=== PATIENT | female | born 1930 | race Caucasian/White ===

== ENCOUNTER 2018-11-02 15:58 | Inpatient (IN) | payer MEDICAID, MEDICARE ==
[2018-11-02] MEDS ORDERED: Metolazone 5 MG Tab PO ONE (17:30)
[2018-11-02] MEDS ORDERED: Furosemide 40 MG/4 ML VIAL IVPUSH ONE (18:00)
--- NOTE | 2018-11-02 18:00 | PCM.HP ---
H&P History of Present Illness - General Date of Service: 11/02/18 Admit Problem/Dx: Admission Diagnosis/Problem Admission Diagnosis/Problem CHF, Congestive heart failure Source of Information: Family History Limitations: Reports: Other (Doesn't speak [place]) - History of Present Illness Initial Comments - Free Text/Narative: This is a 87-year-old female patient of Dr. Azul has a history of right-sided heart failure. Set about 1-2 weeks history of increasing leg swelling. He called over felt she should be admitted for right-sided failure. She's also amlodipine currently for hypertension. She has history of atrial fib. History is limited because Mr. who speaks some [place]. She does not speak any. According to him she has no fevers, chills or shortness of breath. It appears that she was seen by one of the PAs with increase her Lasix for a while and then decrease it. I'm not able to get any more history that's relevant be due to light image barrier. lower legs Pain Score (Numeric/FACES): 5 - Related Data Allergies/Adverse Reactions: Allergies Allergy/AdvReac Type Severity Reaction Status Date / Time No Known Allergies Allergy Verified 10/03/13 23:46 Home Medications: Home Meds Cholecalciferol (Vitamin D3) [Vitamin D3] 2,000 unit PO DAILY 11/02/18 [History] Furosemide 80 mg PO BID 11/02/18 [History] Levothyroxine [Sythroid] 100 mcg PO SUTUWETHSA 11/02/18 [History] Levothyroxine [Sythroid] 150 mcg PO MOFR 11/02/18 [History] Metoprolol Succinate [Toprol XL] 25 mg PO BEDTIME 11/02/18 [History] Warfarin [Coumadin] 10 mg PO SUTUTHSA 11/02/18 [History] Warfarin [Coumadin] 12.5 mg PO MOWEFR 11/02/18 [History] amLODIPine Besylate [Amlodipine Besylate] 5 mg PO DAILY 11/02/18 [History] Past Medical History - Past Health History Medical/Surgical History: Denies Medical/Surgical History HEENT History: Reports: Hard of Hearing, Other (See Below) Other HEENT History: hearing loss Cardiovascular History: Reports: Afib, Heart Failure, Hypertension, GA Respiratory History: Reports: Other (See Below) (Common her hypertension) Musculoskeletal History: Reports: Gout Endocrine/Metabolic History: Reports: Hypothyroidism Dermatologic History: Reports: Venous Stasis Dermatitis Social & Family History - Family History Family Medical History: Noncontributory - Tobacco Use Smoking Status *Q: Never Smoker - Caffeine Use Caffeine Use: Reports: Tea - Recreational Drug Use Recreational Drug Use: No H&P Review of Systems - Review of Systems: Review Of Systems: Unable To Obtain Exam - Exam Exam: See Below - Vital Signs Weight: 171 lb 4 oz - Exam General: Alert, Cooperative HEENT: Hearing Intact, Posterior Pharynx Clear, TMs Clear Neck: Supple, Trachea Midline, JVD. No: Carotid Bruit Lungs: Clear to Auscultation, Normal Respiratory Effort. No: Crackles, Rales, Rhonchi Cardiovascular: Regular Rate, Irregular Rhythm, Systolic Murmur GI/Abdominal Exam: Normal Bowel Sounds, Soft, Non-Tender, No Organomegaly, No Distention Extremities: Pedal Edema Skin: Warm, Rash (Legs bilateral) Neuro Extensive - Mental Status: Alert Psychiatric: Alert, Anxious - Patient Data Lab Results Last 24 hrs: Laboratory Results - last 24 hr 11/02/18 11/02/18 11/02/18 Range/Units 17:00 17:00 17:00 WBC 5.6 (4.5-12.0) X10-3/uL RBC 3.29 (3.23-5.20) x10(6)uL Hgb 9.6 L (11.5-15.5) g/dL Hct 29.1 L (30.0-51.3) % MCV 88.2 (80-96) fL MCH 29.0 (27.7-33.6) pg MCHC 32.9 (32.2-35.4) g/dL RDW 15.1 (11.5-15.5) % Plt Count 204 (125-369) X10(3)uL MPV 8.1 (7.4-10.4) fL Neut % (Auto) 71.0 (46-82) % Lymph % (Auto) 9.8 L (13-37) % Crowley % (Auto) 14.4 H (4-12) % Eos % (Auto) 4 (1.0-5.0) % Baso % (Auto) 1 (0-2) % Neut # (Auto) 4.1 (1.6-8.3) # Lymph # (Auto) 0.5 L (0.6-5.0) # Crowley # (Auto) 0.8 (0.0-1.3) # Eos # (Auto) 0.2 (0.0-0.8) # Baso # (Auto) 0.0 (0.0-0.2) # PT 66.9 H* (8.7-11.1) INR 7.03 H* (0.89-1.13) Sodium 139 (135-145) mmol/L Potassium 3.4 L (3.5-5.3) mmol/L Chloride 104 (100-110) mmol/L Carbon Dioxide 24 (21-32) mmol/L BUN 40 H (7-18) mg/dL Creatinine 1.5 H (0.55-1.02) mg/dL Est Cr Clr Drug Dosing 19.56 mL/min Estimated GFR (MDRD) 33 L (>60) BUN/Creatinine Ratio 26.7 H (9-20) Glucose 109 (80-116) mg/dL Calcium 8.6 (8.6-10.2) mg/dL Total Bilirubin 0.6 (0.1-1.3) mg/dL AST 39 H (5-25) IU/L ALT 36 (12-36) U/L Alkaline Phosphatase 257 H (56-112) IU/L Total Protein 7.7 (6.0-8.0) g/dL Albumin 2.9 L (3.2-4.6) g/dL Globulin 4.8 g/dL Albumin/Globulin Ratio 0.6 Result Diagrams: 11/02/18 17:00 11/02/18 17:00 - Problem List (1) CHF exacerbation SNOMED Code(s): 84355426 ICD Code: I50.9 - HEART FAILURE, UNSPECIFIED Status: Acute Current Visit : Yes (2) Atrial fibrillation SNOMED Code(s): 25400595 ICD Code: I48.91 - UNSPECIFIED ATRIAL FIBRILLATION Status: Acute Current Visit: Yes (3) Hypertension SNOMED Code(s): 78330236 ICD Code: I10 - ESSENTIAL (PRIMARY) HYPERTENSION Status: Acute Current Visit: Yes (4) Hypothyroidism SNOMED Code(s): 15704147 ICD Code: E03.9 - HYPOTHYROIDISM, UNSPECIFIED Status: Acute Current Visit : Yes (5) Pulmonary hypertension SNOMED Code(s): 20006365 ICD Code: I27.20 - PULMONARY HYPERTENSION, UNSPECIFIED Status: Acute Current Visit: Yes (6) Chronic acquired lymphedema SNOMED Code(s): 40017664 ICD Code: I89.0 - LYMPHEDEMA, NOT ELSEWHERE CLASSIFIED Status: Acute Current Visit: Yes (7) Palliative care status SNOMED Code(s): 969196032 ICD Code: Z51.5 - ENCOUNTER FOR PALLIATIVE CARE Status: Acute Current Visit: Yes (8) Chronic anticoagulation SNOMED Code(s): 980546480 ICD Code: Z79.01 - BASE FILLER (CURRENT) USE OF ANTICOAGULANTS Status: Acute Current Visit: Yes Problem List Initiated/Reviewed/Updated: Yes Orders Last 24hrs: Active Orders 24 hr Category Date Time Status Patient Status [ADT] Routine ADT 11/02/18 16:41 Active Cardiac Monitoring [RC] CONTINUOUS Care 11/02/18 16:42 Active Height and Weight [RC] DAILY Care 11/02/18 16:41 Active Insert Urinary Catheter [OM.PC] Q24H Care 11/02/18 16:45 Ordered Intake and Output [RC] QSHIFT Care 11/02/18 16:42 Active Oxygen Therapy [RC] PRN Care 11/02/18 16:41 Active Up With Assistance [RC] ASDIRECTED Care 11/02/18 16:41 Active Urinary Catheter Assessment [RC] QSHIFT Care 11/02/18 16:45 Active VTE/DVT Education [RC] Per Unit Routine Care 11/02/18 16:41 Active Vital Signs [RC] Q4H Care 11/02/18 16:41 Active OT Evaluation and Treatment [CONS] Routine Cons 11/02/18 16:41 Active PT Evaluation and Treatment [CONS] Routine Cons 11/02/18 16:41 Active 2 Gram Sodium Diet [DIET] Diet 11/02/18 Dinner Active INR,PT,PROTHROMBIN TIME [COAG] DAILY Lab 11/03/18 06:00 Ordered INR,PT,PROTHROMBIN TIME [COAG] DAILY Lab 11/04/18 06:00 Ordered INR,PT,PROTHROMBIN TIME [COAG] DAILY Lab 11/05/18 06:00 Ordered INR,PT,PROTHROMBIN TIME [COAG] DAILY Lab 11/06/18 06:00 Ordered UA W/O MICROSCOPIC [URIN] Routine Lab 11/02/18 16:41 Ordered Cholecalciferol (Vitamin D3) [Vitamin D3] Med 11/03/18 09:00 Active 2,000 units PO DAILY Furosemide [Lasix] Med 11/02/18 18:00 Once 80 mg IVPUSH NOW ONE Levothyroxine [Synthroid] Med 11/03/18 07:30 Active 100 mcg PO SuTuWeThSa@0730 Levothyroxine [Synthroid] Med 11/05/18 07:30 Active 150 mcg PO MoFr@0730 Metoprolol Succinate [Toprol XL] Med 11/02/18 21:00 Active 25 mg PO BEDTIME Sodium Chloride 0.9% [Saline Flush] Med 11/02/18 16:41 Active 10 ml FLUSH ASDIRECTED PRN Saline Lock Insert [OM.PC] Routine Oth 11/02/18 16:41 Ordered Sequential Compression Device [OM.PC] Per Unit Routine Oth 11/02/18 16:42 Ordered Resuscitation Status Routine Resus Stat 11/02/18 16:41 Ordered Medication Orders Cholecalciferol (Vitamin D3) 2,000 units PO DAILY [facility] Furosemide (Lasix) 80 mg IVPUSH NOW ONE Stop: 11/02/18 18:01 Levothyroxine Sodium (Synthroid) 100 mcg PO SuTuWeThSa@0730 [facility] Levothyroxine Sodium (Synthroid) 150 mcg PO MoFr@0730 [facility] Metoprolol Succinate (Toprol Xl) 25 mg PO BEDTIME [facility] Sodium Chloride (Saline Flush) 10 ml FLUSH ASDIRECTED PRN PRN Reason: Keep Vein Open Assessment/Plan Comment:: 1. Admit to inpatient. 2. Kee catheter because she's given Lasix in the evening. 3. Hold her by mouth Lasix. Start IV Lasix of 80 mg after 5 mg of metolazone. Time between 30 minutes. 4. Low sodium diet 5. Up with assist 6. For VTE prophylaxis-STD. Patient's on Coumadin. 7. Hold Coumadin because INR is over 7 and recheck INR in the a.m. 8. Pharmacy to manage INR. 9. Hold amlodipine. 10. Start an temitope inhibitor. 11. Patient had echo 1 year ago that showed right-sided heart failure with mitral regurg.
[2018-11-02] MEDS: Metoprolol Succinate 25 MG Tab.ER PO SCH (20:55)
[2018-11-03] MEDS: Levothyroxine 100 MCG Tab PO SCH ×2 (06:01→07:33)
[2018-11-03] MEDS ORDERED: Lisinopril 5 MG Tab PO SCH (09:00)
[2018-11-03] MEDS ORDERED: ceFAZolin 1 GM in Sodium Chloride 0.9% 50 ML IV SCH (09:00)
--- NOTE | 2018-11-03 09:02 | PCM.PN ---
- General Info Date of Service: 11/03/18 Admission Dx/Problem (Free Text): Have to communicate with this patient through her who speaks adequate [place]. Can get do detailed. No yarn sizer available including with technology. Denies fevers, chills, chest pain, shortness of breath. Legs may be better still painful. - Patient Data Vitals - Most Recent: Last Vital Signs Temp 97.6 F 11/03/18 04:00 Pulse 62 11/03/18 04:00 Resp 17 11/03/18 04:00 BP 137/61 11/03/18 04:00 Pulse Ox 92 L 11/03/18 04:00 Weight - Most Recent: 165 lb 8 oz I&O - Last 24 Hours: Intake & Output 11/02/18 11/03/18 11/03/18 22:59 06:59 14:59 Intake Total 100 Output Total 1120 2250 Balance -1120 -2150 Lab Results Last 24 Hours: Laboratory Results - last 24 hr 11/02/18 11/02/18 11/02/18 Range/Units 17:00 17:00 17:00 WBC 5.6 (4.5-12.0) X10-3/uL RBC 3.29 (3.23-5.20) x10(6)uL Hgb 9.6 L (11.5-15.5) g/dL Hct 29.1 L (30.0-51.3) % MCV 88.2 (80-96) fL MCH 29.0 (27.7-33.6) pg MCHC 32.9 (32.2-35.4) g/dL RDW 15.1 (11.5-15.5) % Plt Count 204 (125-369) X10(3)uL MPV 8.1 (7.4-10.4) fL Neut % (Auto) 71.0 (46-82) % Lymph % (Auto) 9.8 L (13-37) % Brewster % (Auto) 14.4 H (4-12) % Eos % (Auto) 4 (1.0-5.0) % Baso % (Auto) 1 (0-2) % Neut # (Auto) 4.1 (1.6-8.3) # Lymph # (Auto) 0.5 L (0.6-5.0) # Brewster # (Auto) 0.8 (0.0-1.3) # Eos # (Auto) 0.2 (0.0-0.8) # Baso # (Auto) 0.0 (0.0-0.2) # PT 66.9 H* (8.7-11.1) INR 7.03 H* (0.89-1.13) Sodium 139 (135-145) mmol/L Potassium 3.4 L (3.5-5.3) mmol/L Chloride 104 (100-110) mmol/L Carbon Dioxide 24 (21-32) mmol/L BUN 40 H (7-18) mg/dL Creatinine 1.5 H (0.55-1.02) mg/dL Est Cr Clr Drug Dosing 19.56 mL/min Estimated GFR (MDRD) 33 L (>60) BUN/Creatinine Ratio 26.7 H (9-20) Glucose 109 (80-116) mg/dL Calcium 8.6 (8.6-10.2) mg/dL Total Bilirubin 0.6 (0.1-1.3) mg/dL AST 39 H (5-25) IU/L ALT 36 (12-36) U/L Alkaline Phosphatase 257 H (56-112) IU/L Troponin I (<0.017-0.056) ng/mL Total Protein 7.7 (6.0-8.0) g/dL Albumin 2.9 L (3.2-4.6) g/dL Globulin 4.8 g/dL Albumin/Globulin Ratio 0.6 Urine Color (YELLOW) Urine Appearance (CLEAR) Urine pH (5.0-6.5) Ur Specific Sherborn (1.010-1.025) Urine Protein (NEGATIVE) mg/dL Urine Glucose (UA) (NEGATIVE) mg/dL Urine Ketones (NEGATIVE) mg/dL Urine Occult Blood (NEGATIVE) Urine Nitrite (NEGATIVE) Urine Bilirubin (NEGATIVE) Urine Urobilinogen (NEGATIVE) mg/dL Ur Leukocyte Esterase (NEGATIVE) 11/02/18 11/03/18 11/03/18 Range/Units 18:00 06:05 06:05 WBC (4.5-12.0) X10-3/uL RBC (3.23-5.20) x10(6)uL Hgb (11.5-15.5) g/dL Hct (30.0-51.3) % MCV (80-96) fL MCH (27.7-33.6) pg MCHC (32.2-35.4) g/dL RDW (11.5-15.5) % Plt Count (125-369) X10(3)uL MPV (7.4-10.4) fL Neut % (Auto) (46-82) % Lymph % (Auto) (13-37) % Brewster % (Auto) (4-12) % Eos % (Auto) (1.0-5.0) % Baso % (Auto) (0-2) % Neut # (Auto) (1.6-8.3) # Lymph # (Auto) (0.6-5.0) # Brewster # (Auto) (0.0-1.3) # Eos # (Auto) (0.0-0.8) # Baso # (Auto) (0.0-0.2) # PT 84.7 H* (8.7-11.1) INR 7.81 H* (0.89-1.13) Sodium 139 (135-145) mmol/L Potassium 3.4 L (3.5-5.3) mmol/L Chloride 102 (100-110) mmol/L Carbon Dioxide 26 (21-32) mmol/L BUN 44 H (7-18) mg/dL Creatinine 1.5 H (0.55-1.02) mg/dL Est Cr Clr Drug Dosing 19.56 mL/min Estimated GFR (MDRD) 33 L (>60) BUN/Creatinine Ratio 29.3 H (9-20) Glucose 106 (80-116) mg/dL Calcium 8.8 (8.6-10.2) mg/dL Total Bilirubin 0.6 (0.1-1.3) mg/dL AST 38 H (5-25) IU/L ALT 34 (12-36) U/L Alkaline Phosphatase 242 H (56-112) IU/L Troponin I (<0.017-0.056) ng/mL Total Protein 7.6 (6.0-8.0) g/dL Albumin 2.9 L (3.2-4.6) g/dL Globulin 4.7 g/dL Albumin/Globulin Ratio 0.6 Urine Color Yellow (YELLOW) Urine Appearance Clear (CLEAR) Urine pH 5.0 (5.0-6.5) Ur Specific Sherborn 1.015 (1.010-1.025) Urine Protein Negative (NEGATIVE) mg/dL Urine Glucose (UA) Normal (NEGATIVE) mg/dL Urine Ketones Negative (NEGATIVE) mg/dL Urine Occult Blood Negative (NEGATIVE) Urine Nitrite Negative (NEGATIVE) Urine Bilirubin Negative (NEGATIVE) Urine Urobilinogen Normal (NEGATIVE) mg/dL Ur Leukocyte Esterase Negative (NEGATIVE) 11/03/18 11/03/18 Range/Units 06:05 07:20 WBC 5.0 (4.5-12.0) X10-3/uL RBC 3.33 (3.23-5.20) x10(6)uL Hgb 9.5 L (11.5-15.5) g/dL Hct 29.2 L (30.0-51.3) % MCV 87.6 (80-96) fL MCH 28.4 (27.7-33.6) pg MCHC 32.4 (32.2-35.4) g/dL RDW 14.4 (11.5-15.5) % Plt Count 217 (125-369) X10(3)uL MPV 8.5 (7.4-10.4) fL Neut % (Auto) 62.7 (46-82) % Lymph % (Auto) 14.8 (13-37) % Brewster % (Auto) 17.3 H (4-12) % Eos % (Auto) 4 (1.0-5.0) % Baso % (Auto) 1 (0-2) % Neut # (Auto) 3.2 (1.6-8.3) # Lymph # (Auto) 0.7 (0.6-5.0) # Brewster # (Auto) 0.9 (0.0-1.3) # Eos # (Auto) 0.2 (0.0-0.8) # Baso # (Auto) 0.0 (0.0-0.2) # PT (8.7-11.1) INR (0.89-1.13) Sodium (135-145) mmol/L Potassium (3.5-5.3) mmol/L Chloride (100-110) mmol/L Carbon Dioxide (21-32) mmol/L BUN (7-18) mg/dL Creatinine (0.55-1.02) mg/dL Est Cr Clr Drug Dosing mL/min Estimated GFR (MDRD) (>60) BUN/Creatinine Ratio (9-20) Glucose (80-116) mg/dL Calcium (8.6-10.2) mg/dL Total Bilirubin (0.1-1.3) mg/dL AST (5-25) IU/L ALT (12-36) U/L Alkaline Phosphatase (56-112) IU/L Troponin I < 0.017 L (<0.017-0.056) ng/mL Total Protein (6.0-8.0) g/dL Albumin (3.2-4.6) g/dL Globulin g/dL Albumin/Globulin Ratio Urine Color (YELLOW) Urine Appearance (CLEAR) Urine pH (5.0-6.5) Ur Specific Sherborn (1.010-1.025) Urine Protein (NEGATIVE) mg/dL Urine Glucose (UA) (NEGATIVE) mg/dL Urine Ketones (NEGATIVE) mg/dL Urine Occult Blood (NEGATIVE) Urine Nitrite (NEGATIVE) Urine Bilirubin (NEGATIVE) Urine Urobilinogen (NEGATIVE) mg/dL Ur Leukocyte Esterase (NEGATIVE) Med Orders - Current: Current Medications Cholecalciferol (Vitamin D3) 2,000 units PO DAILY [facility] Furosemide (Lasix) 60 mg IVPUSH BID [facility] Levothyroxine Sodium (Synthroid) 100 mcg PO SuTuWeThSa@0730 [facility] Last Admin: 11/03/18 07:33 Dose: Not Given Levothyroxine Sodium (Levothyroxine) 150 mcg PO MoFr@0730 [facility] Lisinopril (Prinivil) 10 mg PO DAILY [facility] Metoprolol Succinate (Toprol Xl) 25 mg PO BEDTIME [facility] Last Admin: 11/02/18 20:55 Dose: 25 mg Sodium Chloride (Saline Flush) 10 ml FLUSH ASDIRECTED PRN PRN Reason: Keep Vein Open Discontinued Medications Furosemide (Lasix) 80 mg IVPUSH NOW ONE Stop: 11/02/18 18:01 Last Admin: 11/02/18 19:00 Dose: 80 mg Lisinopril (Prinivil) 5 mg PO DAILY [facility] Metolazone (Zaroxolyn) 5 mg PO ONETIME ONE Stop: 11/02/18 17:31 Last Admin: 11/02/18 18:21 Dose: 5 mg - Exam General: Alert, Oriented, Cooperative Lungs: Clear to Auscultation, Normal Respiratory Effort. No: Crackles, Rales, Rhonchi Cardiovascular: Regular Rate, Regular Rhythm, Murmurs Extremities: Pedal Edema Skin: Other (Erythema bilateral lower legs.) Psy/Mental Status: Alert, Normal Affect, Normal Mood - Problem List & Annotations (1) CHF exacerbation SNOMED Code(s): 00768096 Code(s): I50.9 - HEART FAILURE, UNSPECIFIED Status: Acute Current Visit: Yes (2) Atrial fibrillation SNOMED Code(s): 19373788 Code(s): I48.91 - UNSPECIFIED ATRIAL FIBRILLATION Status: Acute Current Visit: Yes (3) Hypertension SNOMED Code(s): 71012920 Code(s): I10 - ESSENTIAL (PRIMARY) HYPERTENSION Status: Acute Current Visit: Yes (4) Hypothyroidism SNOMED Code(s): 96477097 Code(s): E03.9 - HYPOTHYROIDISM, UNSPECIFIED Status: Acute Current Visit : Yes (5) Pulmonary hypertension SNOMED Code(s): 07534100 Code(s): I27.20 - PULMONARY HYPERTENSION, UNSPECIFIED Status: Acute Current Visit: Yes (6) Chronic acquired lymphedema SNOMED Code(s): 45417633 Code(s): I89.0 - LYMPHEDEMA, NOT ELSEWHERE CLASSIFIED Status: Acute Current Visit: Yes (7) Palliative care status SNOMED Code(s): 688390995 Code(s): Z51.5 - ENCOUNTER FOR PALLIATIVE CARE Status: Acute Current Visit: Yes (8) Chronic anticoagulation SNOMED Code(s): 879915215 Code(s): Z79.01 - INSPECTOR TUBES (CURRENT) USE OF ANTICOAGULANTS Status: Acute Current Visit: Yes (9) Supratherapeutic INR SNOMED Code(s): 504739572 Code(s): R79.1 - ABNORMAL COAGULATION PROFILE Status: Acute Current Visit : Yes (10) Cellulitis, leg SNOMED Code(s): 632568429 Code(s): L03.119 - CELLULITIS OF UNSPECIFIED PART OF LIMB Status: Acute Current Visit: Yes - Problem List Review Problem List Initiated/Reviewed/Updated: Yes - My Orders Last 24 Hours: My Active Orders 11/02/18 16:41 Patient Status [ADT] Routine Height and Weight [RC] DAILY Oxygen Therapy [RC] PRN Up With Assistance [RC] ASDIRECTED VTE/DVT Education [RC] Per Unit Routine Vital Signs [RC] Q4H OT Evaluation and Treatment [CONS] Routine PT Evaluation and Treatment [CONS] Routine Sodium Chloride 0.9% [Saline Flush] 10 ml FLUSH ASDIRECTED PRN Saline Lock Insert [OM.PC] Routine Resuscitation Status Routine 11/02/18 16:42 Intake and Output [RC] QSHIFT Sequential Compression Device [OM.PC] Per Unit Routine 11/02/18 21:00 Metoprolol Succinate [Toprol XL] 25 mg PO BEDTIME 11/02/18 Dinner 2 Gram Sodium Diet [DIET] 11/03/18 07:01 EKG Documentation Completion [RC] ASDIRECTED CXR [Chest 2V] [CR] Routine EKG 12 Lead [EK] Routine 11/03/18 07:30 Levothyroxine [Synthroid] 100 mcg PO SuTuWeThSa@72911/03/18 08:58 DC Kee Catheter [Urinary Catheter Removal] [RC] Per Unit Routine 11/03/18 09:00 Cholecalciferol (Vitamin D3) [Vitamin D3] 2,000 units PO DAILY Furosemide [Lasix] 60 mg IVPUSH BID Lisinopril [Prinivil] 10 mg PO DAILY ceFAZolin [Ancef] 1 gm Sodium Chloride 0.9% [Normal Saline] 50 ml IV Q8H 11/04/18 06:00 INR,PT,PROTHROMBIN TIME [COAG] DAILY 11/05/18 06:00 INR,PT,PROTHROMBIN TIME [COAG] DAILY 11/05/18 07:30 Levothyroxine 150 mcg PO MoFr@0730 11/06/18 06:00 INR,PT,PROTHROMBIN TIME [COAG] DAILY - Plan Plan:: 1. Check BMP, EKG, chest x-ray, BMP and CBC today. 2. DC Kee and telemetry. 3. IV Lasix of 60 mg twice a day. 4. The legs are painful and erythematous. Heart didn't know if they're infected but unless her some Ancef. 5. PT/OT 6. Continue low-salt diet. 7. Continue daily weights and I's and O's. 8. We have stopped amlodipine. 9. Increase Lisinopril dose to 10 mg a day today.
[2018-11-03] MEDS: Sodium Chloride 0.9% 10 ML Syringe FLUSH PRN ×4 (09:35→20:34)
[2018-11-03] MEDS: ceFAZolin 1 GM Vial IVPUSH SCH ×2 (09:36→20:33)
[2018-11-03] MEDS: Cholecalciferol (Vitamin D3) 1,000 Unit Tab PO SCH (09:39)
[2018-11-03] MEDS: Furosemide 100 MG/10 ML SDV IVPUSH SCH ×2 (09:39→15:49)
[2018-11-03] MEDS: Lisinopril 10 MG Tab PO SCH (09:40)
--- NOTE | 2018-11-03 11:07 | CR ---
INDICATION: CHF. CHEST: PA and lateral views of the chest were obtained 11/03/18. Comparison studies could not be obtained in a timely fashion. Interpretation is made without comparison at this time. The heart is enlarged in general. The aorta is slightly tortuous with calcification in the arch. Evidence of previous median sternotomy is noted. Overlying EKG leads are noted. Pulmonary vasculature in the upper lung theodore is slightly prominent, compatible with a mild degree of CHF. Pleural parenchymal changes are noted at both lung bases, which may be on the basis of minimal pneumonia and pleuritis, more prominent on the left than right. Some of these changes could be on the basis of CHF, however. Bony structures appear to be somewhat diminished in density, raising question of osteoporosis. IMPRESSION: ASHD, cardiomegaly with mild CHF. Bibasilar pleural parenchymal changes may be on the basis of minimal pneumonia and pleuritis, left greater than right. MTDD
[2018-11-03] MEDS: Metoprolol Succinate 25 MG Tab.ER PO SCH (20:32)
[2018-11-04] MEDS: Lisinopril 10 MG Tab PO SCH (08:23)
[2018-11-04] MEDS: Levothyroxine 100 MCG Tab PO SCH (08:23)
[2018-11-04] MEDS: Furosemide 100 MG/10 ML SDV IVPUSH SCH ×2 (08:23→14:20)
[2018-11-04] MEDS: ceFAZolin 1 GM Vial IVPUSH SCH ×2 (08:24→21:19)
[2018-11-04] MEDS: Cholecalciferol (Vitamin D3) 1,000 Unit Tab PO SCH (08:24)
[2018-11-04] MEDS: Sodium Chloride 0.9% 10 ML Syringe FLUSH PRN ×3 (08:25→21:19)
--- NOTE | 2018-11-04 08:52 | PCM.PN ---
- General Info Date of Service: 11/04/18 Admission Dx/Problem (Free Text): Patient is speaking through her . asked the questions. Legs have less pain and they think there is swelling is decreased. She has no shortness breath, fevers, chills, chest pain. She still has a left hip and low back pain. X-rays were ordered have not been done yet. - Patient Data Vitals - Most Recent: Last Vital Signs Temp 98.3 F 11/04/18 03:43 Pulse 68 11/04/18 03:43 Resp 18 11/04/18 03:43 BP 116/54 L 11/04/18 08:23 Pulse Ox 96 11/04/18 03:43 Weight - Most Recent: 165 lb 6.4 oz I&O - Last 24 Hours: Intake & Output 11/03/18 11/04/18 11/04/18 22:59 06:59 14:59 Intake Total 900 200 Output Total 1950 350 Balance -1050 -150 Lab Results Last 24 Hours: Laboratory Results - last 24 hr 11/04/18 11/04/18 11/04/18 Range/Units 06:20 06:20 06:20 PT 82.9 H* (8.7-11.1) INR 7.65 H* (0.89-1.13) Sodium 136 (135-145) mmol/L Potassium 3.4 L (3.5-5.3) mmol/L Chloride 100 (100-110) mmol/L Carbon Dioxide 29 (21-32) mmol/L BUN 53 H (7-18) mg/dL Creatinine 1.8 H (0.55-1.02) mg/dL Est Cr Clr Drug Dosing 16.30 mL/min Estimated GFR (MDRD) 27 L (>60) BUN/Creatinine Ratio 29.4 H (9-20) Glucose 107 (80-116) mg/dL Calcium 8.6 (8.6-10.2) mg/dL NT-Pro-B Natriuret Pep 871 H (<=450) pg/mL Med Orders - Current: Current Medications Cefazolin Sodium (Ancef) 1 gm IVPUSH Q12H [facility] Last Admin: 11/04/18 08:24 Dose: 1 gm Cholecalciferol (Vitamin D3) 2,000 units PO DAILY [facility] Last Admin: 11/04/18 08:24 Dose: 2,000 units Furosemide (Lasix) 60 mg IVPUSH BIDDIURETIC [facility] Last Admin: 11/04/18 08:23 Dose: 60 mg Levothyroxine Sodium (Synthroid) 100 mcg PO SuTuWeThSa@0730 [facility] Last Admin: 11/04/18 08:23 Dose: 100 mcg Levothyroxine Sodium (Levothyroxine) 150 mcg PO MoFr@0730 [facility] Lisinopril (Prinivil) 10 mg PO DAILY [facility] Last Admin: 11/04/18 08:23 Dose: 10 mg Metoprolol Succinate (Toprol Xl) 25 mg PO BEDTIME [facility] Last Admin: 11/03/18 20:32 Dose: 25 mg Sodium Chloride (Saline Flush) 10 ml FLUSH ASDIRECTED PRN PRN Reason: Keep Vein Open Last Admin: 11/04/18 08:28 Dose: 10 ml Discontinued Medications Furosemide (Lasix) 80 mg IVPUSH NOW ONE Stop: 11/02/18 18:01 Last Admin: 11/02/18 19:00 Dose: 80 mg Lisinopril (Prinivil) 5 mg PO DAILY [facility] Metolazone (Zaroxolyn) 5 mg PO ONETIME ONE Stop: 11/02/18 17:31 Last Admin: 11/02/18 18:21 Dose: 5 mg - Exam General: Alert, Oriented Lungs: Clear to Auscultation, Normal Respiratory Effort Cardiovascular: Regular Rate, Regular Rhythm, Murmurs Extremities: Pedal Edema Wound/Incisions: Erythema Improving (Lower legs.) - Problem List & Annotations (1) CHF exacerbation SNOMED Code(s): 75221193 Code(s): I50.9 - HEART FAILURE, UNSPECIFIED Status: Acute Current Visit: Yes (2) Atrial fibrillation SNOMED Code(s): 88784613 Code(s): I48.91 - UNSPECIFIED ATRIAL FIBRILLATION Status: Acute Current Visit: Yes (3) Hypertension SNOMED Code(s): 64762536 Code(s): I10 - ESSENTIAL (PRIMARY) HYPERTENSION Status: Acute Current Visit: Yes (4) Hypothyroidism SNOMED Code(s): 20794213 Code(s): E03.9 - HYPOTHYROIDISM, UNSPECIFIED Status: Acute Current Visit : Yes (5) Pulmonary hypertension SNOMED Code(s): 89729334 Code(s): I27.20 - PULMONARY HYPERTENSION, UNSPECIFIED Status: Acute Current Visit: Yes (6) Chronic acquired lymphedema SNOMED Code(s): 28260249 Code(s): I89.0 - LYMPHEDEMA, NOT ELSEWHERE CLASSIFIED Status: Acute Current Visit: Yes (7) Palliative care status SNOMED Code(s): 377995665 Code(s): Z51.5 - ENCOUNTER FOR PALLIATIVE CARE Status: Acute Current Visit: Yes (8) Chronic anticoagulation SNOMED Code(s): 925610008 Code(s): Z79.01 - [facility] (CURRENT) USE OF ANTICOAGULANTS Status: Acute Current Visit: Yes (9) Supratherapeutic INR SNOMED Code(s): 683836964 Code(s): R79.1 - ABNORMAL COAGULATION PROFILE Status: Acute Current Visit : Yes (10) Cellulitis, leg SNOMED Code(s): 313238755 Code(s): L03.119 - CELLULITIS OF UNSPECIFIED PART OF LIMB Status: Acute Current Visit: Yes (11) Left hip pain SNOMED Code(s): 52881913 Code(s): M25.552 - PAIN IN LEFT HIP Status: Acute Current Visit: Yes (12) Low back pain SNOMED Code(s): 853628225 Code(s): M54.5 - LOW BACK PAIN Status: Acute Current Visit: Yes - Problem List Review Problem List Initiated/Reviewed/Updated: Yes - My Orders Last 24 Hours: My Active Orders 11/03/18 09:00 Cholecalciferol (Vitamin D3) [Vitamin D3] 2,000 units PO DAILY Lisinopril [Prinivil] 10 mg PO DAILY 11/03/18 09:15 Furosemide [Lasix] 60 mg IVPUSH BIDDIURETIC ceFAZolin [Ancef] 1 gm IVPUSH Q12H 11/04/18 06:00 Hip Min 2V or 3V Lt [CR] Routine Lumbar Spine 2 or 3V [CR] Routine 11/05/18 06:00 INR,PT,PROTHROMBIN TIME [COAG] DAILY 11/05/18 07:30 Levothyroxine 150 mcg PO MoFr@0730 11/06/18 06:00 INR,PT,PROTHROMBIN TIME [COAG] DAILY - Plan Plan:: 1. X-ray left hip and low back. 2. Gently wrap the lower legs with some compression 3. Continue the same IV Lasix dose today and consider change to by mouth tomorrow. 4. PT/OT for strengthening and ambulation.
[2018-11-04] MEDS ORDERED: Lisinopril 10 MG Tab PO ONE (09:15)
--- NOTE | 2018-11-04 10:13 | PCM.SN ---
- Free Text/Narrative Note: INR remains high in spite of no Coumadin. The he communicates awake about risks and benefits of blood product transfusion. He is okay with going ahead. Her going to give 2 units of FFP to try to bring the INR down.
[2018-11-04] MEDS ORDERED: Phytonadione ORAL 5mg/5ml Soln Simple Syrup U/D PO ONE ×2 (11:15→17:10)
--- NOTE | 2018-11-04 11:27 | CR ---
INDICATION: Left hip pain. PELVIS WITH LEFT HIP: Frontal view of the pelvis with frontal and lateral views of the left hip were obtained 11/04/18 - no comparisons. There is an appearance of demineralization, suggesting osteoporosis - correlate clinically. Mild degenerative changes are noted at the sacroiliac joints and the hip joints with the joint spaces appearing to be fairly well maintained. No acute bone or joint abnormality was identified. Dextroconcave rotoscoliosis of the lower lumbar spine is noted. IMPRESSION: Mild osteoarthritis, probable osteoporosis. MTDD
--- NOTE | 2018-11-04 11:33 | CR ---
INDICATION: Low back pain. LUMBOSACRAL SPINE: An AP view of the lumbosacral spine and three lateral views were obtained, revealing evidence of degenerative hypertrophic changes of mild degree in general and more prominently at L4-5. Vacuum disk phenomenon and decreased disk space at L4-5 is compatible with degenerative disk disease. There is also appearance of some narrowing of the L5-S1 disk space, suggesting disk disease at that level. Degenerative changes are noted at the apophyseal joints of L4-5 and especially L5-S1. A dextroconvex rotoscoliosis of the thoracolumbar spine is noted of mild to moderate degree. There appear to be clips in the area of the cystic duct, suggesting cholecystectomy - correlate clinically. Mild decrease in bone density raises question of osteoporosis - correlate clinically. Calcifications are noted in the abdominal aorta and iliac arteries. IMPRESSION: Degenerative changes, disk disease, rotoscoliosis. Probable osteoporosis. ASD. MTDD
[2018-11-04] MEDS: Metoprolol Succinate 25 MG Tab.ER PO SCH (21:18)
[2018-11-05] MEDS ORDERED: Levothyroxine 150 MCG Tab PO SCH (07:30)
--- NOTE | 2018-11-05 07:37 | PCM.PN ---
- General Info Date of Service: 11/05/18 Subjective Update: Patient is an 87-year-old female who lives in [place], from [facility] 22 years ago, who does not speak Tajik. 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 She has struggled with lower extremity edema and shortness of breath and Lasix was increased in August to 80 mg by mouth twice a day. In spite of this, over the last 1-2 weeks prior to admission she had increased leg swelling and shortness of breath. Ultimately she was admitted for further diuretic therapy. She was also found to be supratherapeutically anticoagulated with an INR of 7.8 on admission. There was a question of cellulitis in her legs with her lymphedema and she was also treated with Ancef for this. Past medical history: Lymphedema of the bilateral lower extremities Tricuspid valve insufficiency and congestive heart failure with echocardiogram done 10/14/2017 showing ejection fraction of 55-60%, flattened septum consistent with RV pressure/volume overload, normal right ventricular systolic function. Enlarged right ventricle and atrium. Severe tricuspid regurgitation. Moderate pulmonary hypertension. Pulmonary hypertension Hearing loss Gout Essential hypertension Hypothyroidism Atrial fibrillation on warfarin anticoagulation Stasis dermatitis Patient had nuclear medicine stress test done on October 14, 2017 that showed no perfusion defects suggestive myocardial ischemia, no fixed perfusion abnormalities indicative of prior myocardial infarction, LVEF within normal limits at 78% with normal wall motion, normal 3 times a day index, atrial fibrillation. Patient also has been treated with IV diuretic therapy, now on Lasix 60 mg twice a day and legs are much improved as is shortness of breath. She was given 2 doses of oral vitamin K and INR is 2.13 today. She was able to withstand and walk with physical therapy today much better than she has since her hospital stay. She and her live in [place] and he speaks some Tajik. Home health follows them at home. They have a son in [place] who is very involved in their care and he speaks Tajik. Today the patient notes no shortness of breath at rest or with activity. She has no chest pain, no nausea or vomiting, denies pain. Had a good bowel movement this morning. - Patient Data Vitals - Most Recent: Last Vital Signs Temp 36.6 C 11/05/18 03:30 Pulse 64 11/05/18 03:30 Resp 18 02/08/19 03:30 BP 128/53 L 11/05/18 03:30 Pulse Ox 94 L 11/05/18 03:30 Weight - Most Recent: 75.206 kg I&O - Last 24 Hours: Intake & Output 11/04/18 11/05/18 11/05/18 22:59 06:59 14:59 Output Total 650 600 Balance -650 -600 Lab Results Last 24 Hours: Laboratory Results - last 24 hr 11/04/18 11/05/18 Range/Units 16:25 06:23 PT 63.9 H* 20.5 H (8.7-11.1) INR 6.72 H* 2.13 H (0.89-1.13) Med Orders - Current: Current Medications Cefazolin Sodium (Ancef) 1 gm IVPUSH Q12H [facility] Last Admin: 11/04/18 21:19 Dose: 1 gm Cholecalciferol (Vitamin D3) 2,000 units PO DAILY [facility] Last Admin: 11/04/18 08:24 Dose: 2,000 units Furosemide (Lasix) 60 mg PO BIDDIURETIC [facility] Levothyroxine Sodium (Synthroid) 100 mcg PO SuTuWeThSa@0730 [facility] Last Admin: 11/04/18 08:23 Dose: 100 mcg Levothyroxine Sodium (Levothyroxine) 150 mcg PO MoFr@0730 [facility] Last Admin: 11/05/18 06:35 Dose: 150 mcg Lisinopril (Prinivil) 10 mg PO DAILY [facility] Metoprolol Succinate (Toprol Xl) 25 mg PO BEDTIME [facility] Last Admin: 11/04/18 21:18 Dose: 25 mg Sodium Chloride (Saline Flush) 10 ml FLUSH ASDIRECTED PRN PRN Reason: Keep Vein Open Last Admin: 11/04/18 21:19 Dose: 10 ml Discontinued Medications Furosemide (Lasix) 80 mg IVPUSH NOW ONE Stop: 11/02/18 18:01 Last Admin: 11/02/18 19:00 Dose: 80 mg Furosemide (Lasix) 60 mg IVPUSH BIDDIURETIC [facility] Last Admin: 11/04/18 14:20 Dose: 60 mg Lisinopril (Prinivil) 5 mg PO DAILY [facility] Lisinopril (Prinivil) 10 mg PO DAILY [facility] Last Admin: 11/04/18 08:23 Dose: 10 mg Lisinopril (Prinivil) 20 mg PO DAILY [facility] Lisinopril (Prinivil) 10 mg PO ONETIME ONE Stop: 11/04/18 09:16 Last Admin: 11/04/18 11:33 Dose: Not Given Metolazone (Zaroxolyn) 5 mg PO ONETIME ONE Stop: 11/02/18 17:31 Last Admin: 11/02/18 18:21 Dose: 5 mg Phytonadione (Aquamephyton) 5 mg PO ONETIME ONE Stop: 11/04/18 11:16 Last Admin: 11/04/18 11:37 Dose: 5 mg Phytonadione (Aquamephyton) 5 mg PO ONETIME ONE Stop: 11/04/18 17:11 Last Admin: 11/04/18 18:10 Dose: 5 mg - Exam General: Alert, Oriented, Cooperative HEENT: Pupils Equal, Pupils Reactive Neck: Supple Lungs: Clear to Auscultation, Normal Respiratory Effort, Decreased Breath Sounds Cardiovascular: Regular Rate, Regular Rhythm, No Murmurs GI/Abdominal Exam: Normal Bowel Sounds, Soft, Non-Tender, No Distention Extremities: Pedal Edema (Legs are edematous and wrapped in Kin wraps. notes that they're about half the size they were when she came in.) Psy/Mental Status: Alert, Normal Affect, Normal Mood - Problem List & Annotations (1) CHF exacerbation SNOMED Code(s): 69899443 Code(s): I50.9 - HEART FAILURE, UNSPECIFIED Status: Acute Current Visit: Yes Qualifiers: Heart failure type: right-sided Qualified Code(s): I50.813 - Acute on chronic right heart failure Annotation/Comment:: Patient's last echocardiogram was a year ago. She would likely benefit from having this repeated as an outpatient and I would suggest she sees cardiology for further medical recommendations regarding her medication. With regards to her diuresis, I think the patient would benefit from twice a week metolazone to maintain fluid status as she has failed outpatient management with 80 mg twice a day Lasix. Anticipate discharge tomorrow. (2) Chronic acquired lymphedema SNOMED Code(s): 05586057 Code(s): I89.0 - LYMPHEDEMA, NOT ELSEWHERE CLASSIFIED Status: Acute Current Visit: Yes Annotation/Comment:: Much improved. Stressed the importance of maintaining wraps as an outpatient to force fluid back to the heart and prevent skin breakdown. (3) Atrial fibrillation SNOMED Code(s): 49548114 Code(s): I48.91 - UNSPECIFIED ATRIAL FIBRILLATION Status: Acute Current Visit: Yes Annotation/Comment:: Rate controlled with Toprol-XL. On warfarin anticoagulation. Will be closely monitored at discharge for therapeutic levels. Will discuss with family through phone manager asset other options for anticoagulation. (4) Chronic anticoagulation SNOMED Code(s): 231348202 Code(s): Z79.01 - [employer] STENOGRAPHER (CURRENT) USE OF ANTICOAGULANTS Status: Acute Current Visit: Yes Annotation/Comment:: INR at 2.13 today. Pharmacy to manage. (5) Hypertension SNOMED Code(s): 66154869 Code(s): I10 - ESSENTIAL (PRIMARY) HYPERTENSION Status: Acute Current Visit: Yes Annotation/Comment:: Blood pressure stable. Monitor. (6) Hypothyroidism SNOMED Code(s): 52824829 Code(s): E03.9 - HYPOTHYROIDISM, UNSPECIFIED Status: Acute Current Visit : Yes Annotation/Comment:: Continue home med. (7) DVT prophylaxis SNOMED Code(s): 994076707, 332383574 Code(s): HGY2669 - Status: Acute Current Visit: Yes Annotation/Comment :: On warfarin anticoagulation. Continue Kin wraps and SCDs. - Problem List Review Problem List Initiated/Reviewed/Updated: Yes
[2018-11-05] MEDS: Cholecalciferol (Vitamin D3) 1,000 Unit Tab PO SCH (08:40)
[2018-11-05] MEDS: Lisinopril 10 MG Tab PO SCH (08:40)
[2018-11-05] MEDS: Furosemide 20 MG Tab PO SCH ×2 (08:40→14:42)
[2018-11-05] MEDS ORDERED: Lisinopril 20 MG Tab PO SCH (09:00)
[2018-11-05] MEDS: ceFAZolin 1 GM Vial IVPUSH SCH ×2 (10:48→21:31)
[2018-11-05] MEDS: Sodium Chloride 0.9% 10 ML Syringe FLUSH PRN ×2 (11:03→21:36)
[2018-11-05] MEDS: Metoprolol Succinate 25 MG Tab.ER PO SCH (21:29)
[2018-11-06] MEDS: Levothyroxine 100 MCG Tab PO SCH (06:45)
[2018-11-06] MEDS ORDERED: Metolazone 2.5 MG Tab PO SCH (07:00)
[2018-11-06] MEDS: Furosemide 20 MG Tab PO SCH (08:37)
[2018-11-06] MEDS: Cholecalciferol (Vitamin D3) 1,000 Unit Tab PO SCH (08:38)
[2018-11-06] MEDS: Lisinopril 10 MG Tab PO SCH (08:38)
[2018-11-06] MEDS: ceFAZolin 1 GM Vial IVPUSH SCH ×2 (08:40→20:37)
[2018-11-06] MEDS: Sodium Chloride 0.9% 10 ML Syringe FLUSH PRN ×2 (08:43→20:37)
--- NOTE | 2018-11-06 10:45 | PCM.PN ---
- General Info Date of Service: 11/06/18 Subjective Update: Patient is an 87-year-old female from [facility], non-Japanese speaking, who was admitted on 11/02/18 with lower extremity swelling and CHF secondary to right- sided heart failure and pulmonary hypertension. Today the patient notes no shortness of breath at rest or with activity. She has no chest pain, no nausea or vomiting, denies pain. I visited with the patient, her for 1 hour this morning using [place] site interpreter service. Reviewed the patient's diagnosis and how congestive heart failure causes fluid to build up in the soft tissues. As fluid builds up and causes the heart muscle to not function effectively, our treatment is to remove fluid from the intravascular space and that causes a fluid shift from the soft tissues, getting the fluid out of the legs. Also reviewed code status at length and patient does want CPR if her heart stops or she stops breathing. She wants full medical treatment, whatever can be done to keep her alive. Also discussed anticoagulation options and reviewed Eliquis which at this point I feel would be medically safer given patient's variable INRs and recent supratherapeutic levels. They were in agreement to try this. I also spent 30 minutes visiting with the patient's son and reviewing all the above information again and answering any questions they may have. - Patient Data Vitals - Most Recent: Last Vital Signs Temp 36.4 C 11/06/18 08:30 Pulse 57 L 11/06/18 08:30 Resp 20 11/06/18 08:30 BP 115/49 L 11/06/18 08:38 Pulse Ox 94 L 11/06/18 08:30 Weight - Most Recent: 76.294 kg I&O - Last 24 Hours: Intake & Output 11/05/18 11/06/18 11/06/18 22:59 06:59 14:59 Intake Total 100 100 Output Total 700 300 Balance -600 -200 Lab Results Last 24 Hours: Laboratory Results - last 24 hr 11/06/18 11/06/18 11/06/18 Range/Units 06:55 06:55 06:55 WBC 5.9 (4.5-12.0) X10-3/uL RBC 3.28 (3.23-5.20) x10(6)uL Hgb 9.2 L (11.5-15.5) g/dL Hct 28.6 L (30.0-51.3) % MCV 87.3 (80-96) fL MCH 28.0 (27.7-33.6) pg MCHC 32.1 L (32.2-35.4) g/dL RDW 14.6 (11.5-15.5) % Plt Count 197 (125-369) X10(3)uL MPV 8.8 (7.4-10.4) fL Add Manual Diff Yes Neutrophils % (Manual) 71 (46-82) % Lymphocytes % (Manual) 12 L (13-37) % Monocytes % (Manual) 13 H (4-12) % Eosinophils % (Manual) 4 (0-5) % PT 13.9 H (8.7-11.1) INR 1.44 H (0.89-1.13) Sodium 134 L (135-145) mmol/L Potassium 3.3 L (3.5-5.3) mmol/L Chloride 98 L (100-110) mmol/L Carbon Dioxide 27 (21-32) mmol/L BUN 76 H D (7-18) mg/dL Creatinine 2.2 H* (0.55-1.02) mg/dL Est Cr Clr Drug Dosing 13.34 mL/min Estimated GFR (MDRD) 21 L (>60) BUN/Creatinine Ratio 34.5 H (9-20) Glucose 111 (80-116) mg/dL Calcium 8.5 L (8.6-10.2) mg/dL Total Bilirubin 0.7 (0.1-1.3) mg/dL AST 34 H D (5-25) IU/L ALT 15 D (12-36) U/L Alkaline Phosphatase 229 H (56-112) IU/L Total Protein 7.0 (6.0-8.0) g/dL Albumin 2.7 L (3.2-4.6) g/dL Globulin 4.3 g/dL Albumin/Globulin Ratio 0.6 Med Orders - Current: Current Medications Cefazolin Sodium (Ancef) 1 gm IVPUSH Q12H [facility] Last Admin: 11/06/18 08:40 Dose: 1 gm Cholecalciferol (Vitamin D3) 2,000 units PO DAILY [facility] Last Admin: 11/06/18 08:38 Dose: 2,000 units Furosemide (Lasix) 60 mg PO BIDDIURETIC [facility] Last Admin: 11/06/18 08:37 Dose: 60 mg Levothyroxine Sodium (Synthroid) 100 mcg PO SuTuWeThSa@0730 [facility] Last Admin: 11/06/18 06:45 Dose: 100 mcg Levothyroxine Sodium (Levothyroxine) 150 mcg PO MoFr@0730 [facility] Last Admin: 11/05/18 06:35 Dose: 150 mcg Lisinopril (Prinivil) 10 mg PO DAILY [facility] Last Admin: 11/06/18 08:38 Dose: 10 mg Metolazone (Zaroxolyn) 2.5 mg PO WeSa@0700 [facility] Last Admin: 11/06/18 06:45 Dose: 2.5 mg Metoprolol Succinate (Toprol Xl) 25 mg PO BEDTIME [facility] Last Admin: 11/05/18 21:29 Dose: 25 mg Pharmacy Consult (Consult To Pharmacy) 1 each .XX ASDIRECTED [facility] Sodium Chloride (Saline Flush) 10 ml FLUSH ASDIRECTED PRN PRN Reason: Keep Vein Open Last Admin: 11/06/18 08:43 Dose: 10 ml Warfarin Sodium (Coumadin) 5 mg PO ONETIME ONE Stop: 11/06/18 16:01 Discontinued Medications Furosemide (Lasix) 80 mg IVPUSH NOW ONE Stop: 11/02/18 18:01 Last Admin: 11/02/18 19:00 Dose: 80 mg Furosemide (Lasix) 60 mg IVPUSH BIDDIURETIC [facility] Last Admin: 11/04/18 14:20 Dose: 60 mg Lisinopril (Prinivil) 5 mg PO DAILY [facility] Lisinopril (Prinivil) 10 mg PO DAILY [facility] Last Admin: 11/04/18 08:23 Dose: 10 mg Lisinopril (Prinivil) 20 mg PO DAILY [facility] Lisinopril (Prinivil) 10 mg PO ONETIME ONE Stop: 11/04/18 09:16 Last Admin: 11/04/18 11:33 Dose: Not Given Metolazone (Zaroxolyn) 5 mg PO ONETIME ONE Stop: 11/02/18 17:31 Last Admin: 11/02/18 18:21 Dose: 5 mg Phytonadione (Aquamephyton) 5 mg PO ONETIME ONE Stop: 11/04/18 11:16 Last Admin: 11/04/18 11:37 Dose: 5 mg Phytonadione (Aquamephyton) 5 mg PO ONETIME ONE Stop: 11/04/18 17:11 Last Admin: 11/04/18 18:10 Dose: 5 mg - Exam General: Alert, Cooperative, No Acute Distress HEENT: Pupils Equal, Pupils Reactive Neck: Supple Lungs: Clear to Auscultation, Normal Respiratory Effort, Decreased Breath Sounds Cardiovascular: Regular Rate, Irregular Rhythm GI/Abdominal Exam: Normal Bowel Sounds, Soft, Non-Tender Extremities: Pedal Edema (2+ woody stasis dermatitis with no evidence of cellulitis currently. ) - Problem List & Annotations (1) CHF exacerbation SNOMED Code(s): 56231430 Code(s): I50.9 - HEART FAILURE, UNSPECIFIED Status: Acute Current Visit: Yes Qualifiers: Heart failure type: right-sided Qualified Code(s): I50.813 - Acute on chronic right heart failure Annotation/Comment:: Patient's last echocardiogram was a year ago. She would likely benefit from having this repeated as an outpatient and I would suggest she sees cardiology for further medical recommendations regarding her medication. Given significant increase in BUN/Cr ratio, held lasix for this afternoon. Stop ACEI which was started yesterday. Recheck in am. Overall clinically doing better. (2) Chronic acquired lymphedema SNOMED Code(s): 45002315 Code(s): I89.0 - LYMPHEDEMA, NOT ELSEWHERE CLASSIFIED Status: Acute Current Visit: Yes Annotation/Comment:: Much improved. Stressed the importance of maintaining wraps as an outpatient to force fluid back to the heart and prevent skin breakdown. (3) Atrial fibrillation SNOMED Code(s): 00527619 Code(s): I48.91 - UNSPECIFIED ATRIAL FIBRILLATION Status: Acute Current Visit: Yes Annotation/Comment:: Rate controlled with Toprol-XL. Start eliquis anticoagulation. Cost to be addressed with outpatient pharmacy prior to discharge. (4) Chronic anticoagulation SNOMED Code(s): 657883922 Code(s): Z79.01 - ASSISTANT BOOKKEEPER (CURRENT) USE OF ANTICOAGULANTS Status: Acute Current Visit: Yes Annotation/Comment:: INR subtherapeutic today. Start eliquis. (5) Hypertension SNOMED Code(s): 33697070 Code(s): I10 - ESSENTIAL (PRIMARY) HYPERTENSION Status: Acute Current Visit: Yes Annotation/Comment:: Blood pressure stable. Monitor. Stop lisinopril which was just started due to worsening CR. (6) Hypothyroidism SNOMED Code(s): 07521622 Code(s): E03.9 - HYPOTHYROIDISM, UNSPECIFIED Status: Acute Current Visit : Yes Annotation/Comment:: Continue home med. (7) DVT prophylaxis SNOMED Code(s): 002755045, 179750717 Code(s): LNP9753 - Status: Acute Current Visit: Yes Annotation/Comment :: Started on Eliquis. Continue Kin wraps and SCDs. - Problem List Review Problem List Initiated/Reviewed/Updated: Yes - My Orders Last 24 Hours: My Active Orders 11/06/18 07:00 metOLazone [Zaroxolyn] 2.5 mg PO WeSa@0700 11/06/18 08:45 Pharmacy Consult [Consult to Pharmacy] 1 each .XX ASDIRECTED 11/06/18 16:00 Warfarin [Coumadin] 5 mg PO ONETIME ONE 11/07/18 05:11 BASIC METABOLIC PANEL,BMP [CHEM] AM 11/07/18 06:00 INR,PT,PROTHROMBIN TIME [COAG] DAILY 11/08/18 06:00 INR,PT,PROTHROMBIN TIME [COAG] DAILY 11/09/18 06:00 INR,PT,PROTHROMBIN TIME [COAG] DAILY 11/10/18 06:00 INR,PT,PROTHROMBIN TIME [COAG] DAILY - Plan Plan:: CODE STATUS discussed with the patient and her at length through the [place] site interpreter. The patient would want everything done if her heart were to stop beating or she were to stop breathing. She would want full resuscitative efforts. She wants full medical care. This was reviewed with the patient, her and her son. Thus patient is full code.
[2018-11-06] MEDS ORDERED: Warfarin 5 MG Tab PO ONE (16:00)
[2018-11-06] MEDS: Apixaban 5 MG Tab PO SCH (17:42)
[2018-11-06] MEDS: Metoprolol Succinate 25 MG Tab.ER PO SCH (20:34)
--- NOTE | 2018-11-07 07:29 | PCM.DCSUM1 ---
Discharge Summary - Hospital Course Free Text/Narrative:: Date of admission: 11/02/18 Date of transfer to higher level of care: 11/07/18 Admission diagnosis: Right-sided heart failure with lower extremity edema and shortness of breath. Supratherapeutic anticoagulation on warfarin with INR 7.8 on admission Lymphedema/pedal edema with possible cellulitis of the lower extremities Transfer diagnoses: Right-sided heart failure with lower extremity edema Acute kidney injury secondary to diuresis and heart failure Secondary diagnoses: Atrial fibrillation, rate controlled. Hypertension Hypothyroidism Consults: None Procedures: None History of present illness: Patient is an 87-year-old female who lives in [place], from [facility] 22 years ago, who does not speak [place]. 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 She has struggled with lower extremity edema and shortness of breath and Lasix was increased in August to 80 mg by mouth twice a day. In spite of this, over the last 1-2 weeks prior to admission she had increased leg swelling and shortness of breath. Ultimately she was admitted for further diuretic therapy. She was also found to be supratherapeutically anticoagulated with an INR of 7.8 on admission. There was a question of cellulitis in her legs with her lymphedema and she was also treated with Ancef for this. Past medical history: Lymphedema of the bilateral lower extremities Tricuspid valve insufficiency and congestive heart failure with echocardiogram done 10/14/2017 showing ejection fraction of 55-60%, flattened septum consistent with RV pressure/volume overload, normal right ventricular systolic function. Enlarged right ventricle and atrium. Severe tricuspid regurgitation. Moderate pulmonary hypertension. Pulmonary hypertension Hearing loss Gout Essential hypertension Hypothyroidism Atrial fibrillation on warfarin anticoagulation Stasis dermatitis Patient had nuclear medicine stress test done on October 14, 2017 that showed no perfusion defects suggestive myocardial ischemia, no fixed perfusion abnormalities indicative of prior myocardial infarction, LVEF within normal limits at 78% with normal wall motion, atrial fibrillation. Hospital Course: Initially the patient's weight dropped gradually and her lower extremity swelling improved. Her ambulation improved. Her SOB resolved. She had less pain in her legs. Her INR failed to come down so on HD #3 she was given PO vitamin K which normalized her INR and once INR < 2 was started on eliquis. She also was started on lisinopril for blood pressure control. On day prior to transfer, her creatinine had increased from 1.5 on admission to 2.2 with diuresis. She had received her lasix and metolazone in the am but subsequent lasix was held. Lisinopril was D/C'd. Her weight was increasing, leg swelling increasing. Discussed transfer to higher level of care using [employer] wall attendant services if renal function continued to worsen. Code status was also confirmed (FULL CODE) and new anticoagulant was discussed at length. On the am of transfer, in spite of holding lisinopril and diuretics, her creatinine worsened to 2.7 and recommended she be transferred to higher level of care for specialty consultation. Condition at the time of discharge: at the time of discharge, vital signs were stable. Patient denied chest pain, shortness of breath. She did complain of leg pain particularly in the left thigh and groin. No nausea, no vomiting. No diarrhea. See below for physical exam in the day of discharge. Discharge plan: Patient will be transferred to higher level of care at [facility]. Dr. Cardoza accepted the patient in transfer at 7:12 AM. - Discharge Data Discharge Date: 11/07/18 Discharge Disposition: DC/Tfer to Acute Hospital 02 Condition: Good - Discharge Diagnosis/Problem(s) (1) Acute kidney injury superimposed on CKD SNOMED Code(s): 95046269 ICD Code: N17.9 - ACUTE KIDNEY FAILURE, UNSPECIFIED; N18.9 - CHRONIC KIDNEY DISEASE, UNSPECIFIED Status: Acute Current Visit: Yes Problem Details: Creatinine now 2.7 with BUN 89. I feel patient would benefit from higher level of care with her right sided heart failure, pulmonary hypertension and now increasing weight with intravascular volume depletion. Transfer to [facility]. Dr. Cardoza accepting at 0715. (2) CHF exacerbation SNOMED Code(s): 61758139 ICD Code: I50.9 - HEART FAILURE, UNSPECIFIED Status: Acute Current Visit : Yes Problem Details: Weight continues to increase but the patient's creatinine has also climbed. The patient has been here for 6 days and I feel at this point would benefit from a higher level of care. Qualifiers: Heart failure type: right-sided Qualified Code(s): I50.813 - Acute on chronic right heart failure (3) Chronic acquired lymphedema SNOMED Code(s): 19520371 ICD Code: I89.0 - LYMPHEDEMA, NOT ELSEWHERE CLASSIFIED Status: Acute Current Visit: Yes Problem Details: Much improved. Stressed the importance of maintaining wraps as an outpatient to force fluid back to the heart and prevent skin breakdown. (4) Atrial fibrillation SNOMED Code(s): 25531207 ICD Code: I48.91 - UNSPECIFIED ATRIAL FIBRILLATION Status: Acute Current Visit: Yes Problem Details: Rate controlled with Toprol-XL. Start eliquis anticoagulation. Cost to be addressed with outpatient pharmacy prior to discharge. (5) Chronic anticoagulation SNOMED Code(s): 049933453 ICD Code: Z79.01 - RAW MATERIAL [employer]ER (CURRENT) USE OF ANTICOAGULANTS Status: Acute Current Visit: Yes Problem Details: Now on eliquis. (6) Hypertension SNOMED Code(s): 55128668 ICD Code: I10 - ESSENTIAL (PRIMARY) HYPERTENSION Status: Acute Current Visit: Yes Problem Details: Blood pressure stable. Monitor. Lisinopril stopped 11/06 due to worsening creatinine. (7) Hypothyroidism SNOMED Code(s): 74738373 ICD Code: E03.9 - HYPOTHYROIDISM, UNSPECIFIED Status: Acute Current Visit : Yes Problem Details: Continue home med. (8) DVT prophylaxis SNOMED Code(s): 736631169, 878500679 ICD Code: [id number] - Status: Acute Current Visit: Yes Problem Details: Started on Eliquis. Continue Kin wraps and SCDs. - Patient Summary/Data Consults: Consultations 11/02/18 16:41 OT Evaluation and Treatment [CONS] Routine Please Evaluate and Treat. OT Reason for Consult: ADL's This query below is only for informational purposes and is not editable. PT Evaluation and Treatment [CONS] Routine Please Evaluate and Treat. PT Reason for Consult: Ambulation This query below is only for informational purposes and is not editable. - Discharge Plan Home Medications: Home Meds Cholecalciferol (Vitamin D3) [Vitamin D3] 2,000 unit PO DAILY 11/02/18 [History] Furosemide 80 mg PO BID 11/02/18 [History] Levothyroxine [Sythroid] 100 mcg PO SUTUWETHSA 11/02/18 [History] Levothyroxine [Sythroid] 150 mcg PO MOFR 11/02/18 [History] Metoprolol Succinate [Toprol XL] 25 mg PO BEDTIME 11/02/18 [History] Warfarin [Coumadin] 10 mg PO SUTUTHSA 11/02/18 [History] Warfarin [Coumadin] 12.5 mg PO MOWEFR 11/02/18 [History] amLODIPine Besylate [Amlodipine Besylate] 5 mg PO DAILY 11/02/18 [History] Patient Handouts: What You Need to Know About Warfarin, Lymphedema, Venous Thromboembolism Prevention - Discharge Summary/Plan Comment DC Time >30 min.: No - General Info Date of Service: 11/07/18 - Patient Data Vitals - Most Recent: Last Vital Signs Temp 36.3 C 11/07/18 02:00 Pulse 64 11/07/18 02:00 Resp 20 11/07/18 02:00 BP 124/48 L 11/07/18 02:00 Pulse Ox 97 11/07/18 02:00 Weight - Most Recent: 77.281 kg I&O - Last 24 hours: Intake & Output 11/06/18 11/07/18 11/07/18 22:59 06:59 14:59 Intake Total 400 Output Total 500 150 Balance -100 -150 Lab Results - Last 24 hrs: Laboratory Results - last 24 hr 11/06/18 11/06/18 11/07/18 Range/Units 06:55 06:55 06:20 WBC 5.9 (4.5-12.0) X10-3/uL RBC 3.28 (3.23-5.20) x10(6)uL Hgb 9.2 L (11.5-15.5) g/dL Hct 28.6 L (30.0-51.3) % MCV 87.3 (80-96) fL MCH 28.0 (27.7-33.6) pg MCHC 32.1 L (32.2-35.4) g/dL RDW 14.6 (11.5-15.5) % Plt Count 197 (125-369) X10(3)uL MPV 8.8 (7.4-10.4) fL Add Manual Diff Yes Neutrophils % (Manual) 71 (46-82) % Lymphocytes % (Manual) 12 L (13-37) % Monocytes % (Manual) 13 H (4-12) % Eosinophils % (Manual) 4 (0-5) % Sodium 134 L 132 L (135-145) mmol/L Potassium 3.3 L 3.9 (3.5-5.3) mmol/L Chloride 98 L 97 L (100-110) mmol/L Carbon Dioxide 27 27 (21-32) mmol/L BUN 76 H D 89 H D (7-18) mg/dL Creatinine 2.2 H* 2.7 H* (0.55-1.02) mg/dL Est Cr Clr Drug Dosing 13.34 10.87 mL/min Estimated GFR (MDRD) 21 L 17 L (>60) BUN/Creatinine Ratio 34.5 H 33.0 H (9-20) Glucose 111 113 (80-116) mg/dL Calcium 8.5 L 8.6 (8.6-10.2) mg/dL Total Bilirubin 0.7 (0.1-1.3) mg/dL AST 34 H D (5-25) IU/L ALT 15 D (12-36) U/L Alkaline Phosphatase 229 H (56-112) IU/L Total Protein 7.0 (6.0-8.0) g/dL Albumin 2.7 L (3.2-4.6) g/dL Globulin 4.3 g/dL Albumin/Globulin Ratio 0.6 Med Orders - Current: Current Medications Apixaban (Eliquis) 2.5 mg PO BIDAC [facility] Last Admin: 11/06/18 17:42 Dose: 2.5 mg Cefazolin Sodium (Ancef) 1 gm IVPUSH Q12H [facility] Last Admin: 11/06/18 20:37 Dose: 1 gm Cholecalciferol (Vitamin D3) 2,000 units PO DAILY [facility] Last Admin: 11/06/18 08:38 Dose: 2,000 units Furosemide (Lasix) 60 mg PO BIDDIURETIC [facility] Last Admin: 11/06/18 08:37 Dose: 60 mg Levothyroxine Sodium (Synthroid) 100 mcg PO [id number] [facility] Last Admin: 11/06/18 06:45 Dose: 100 mcg Levothyroxine Sodium (Levothyroxine) 150 mcg PO [id number] [facility] Last Admin: 11/05/18 06:35 Dose: 150 mcg Metolazone (Zaroxolyn) 2.5 mg PO [id number] [facility] Last Admin: 11/06/18 06:45 Dose: 2.5 mg Metoprolol Succinate (Toprol Xl) 25 mg PO BEDTIME [facility] Last Admin: 11/06/18 20:34 Dose: 25 mg Sodium Chloride (Saline Flush) 10 ml FLUSH ASDIRECTED PRN PRN Reason: Keep Vein Open Last Admin: 11/06/18 20:37 Dose: 10 ml Discontinued Medications Furosemide (Lasix) 80 mg IVPUSH NOW ONE Stop: 11/02/18 18:01 Last Admin: 11/02/18 19:00 Dose: 80 mg Furosemide (Lasix) 60 mg IVPUSH BIDDIURETIC [facility] Last Admin: 11/04/18 14:20 Dose: 60 mg Lisinopril (Prinivil) 5 mg PO DAILY [facility] Lisinopril (Prinivil) 10 mg PO DAILY [facility] Last Admin: 11/04/18 08:23 Dose: 10 mg Lisinopril (Prinivil) 20 mg PO DAILY [facility] Lisinopril (Prinivil) 10 mg PO ONETIME ONE Stop: 11/04/18 09:16 Last Admin: 11/04/18 11:33 Dose: Not Given Lisinopril (Prinivil) 10 mg PO DAILY [facility] Last Admin: 11/06/18 08:38 Dose: 10 mg Metolazone (Zaroxolyn) 5 mg PO ONETIME ONE Stop: 11/02/18 17:31 Last Admin: 11/02/18 18:21 Dose: 5 mg Pharmacy Consult (Consult To Pharmacy) 1 each .XX ASDIRECTED [facility] Phytonadione (Aquamephyton) 5 mg PO ONETIME ONE Stop: 11/04/18 11:16 Last Admin: 11/04/18 11:37 Dose: 5 mg Phytonadione (Aquamephyton) 5 mg PO ONETIME ONE Stop: 11/04/18 17:11 Last Admin: 11/04/18 18:10 Dose: 5 mg Warfarin Sodium (Coumadin) 5 mg PO ONETIME ONE Stop: 11/06/18 16:01 - Exam General: Reports: Alert, Cooperative, No Acute Distress HEENT: Reports: Pupils Equal, Pupils Reactive, EOMI Neck: Reports: Supple Lungs: Reports: Clear to Auscultation, Normal Respiratory Effort, Decreased Breath Sounds Cardiovascular: Reports: No Murmurs, Irregular Rhythm GI/Abdominal Exam: Normal Bowel Sounds, Soft, Non-Tender, No Distention Extremities: Pedal Edema (3+ symmetric. Tender throughout both lower extremities.)
[2018-11-07 08:02] VITALS: BP 120/46
[2018-11-07] MEDS: Cholecalciferol (Vitamin D3) 1,000 Unit Tab PO SCH (08:03)
[2018-11-07] MEDS: Apixaban 5 MG Tab PO SCH (08:03)
[2018-11-07] MEDS: Levothyroxine 100 MCG Tab PO SCH (08:03)
[2018-11-07] MEDS: ceFAZolin 1 GM Vial IVPUSH SCH ×2 (08:04→08:15)
[2018-11-07] MEDS: Sodium Chloride 0.9% 10 ML Syringe FLUSH PRN (08:19)
== END 2018-11-07 08:36 | DRG 292 ==
LOC: FB.MS 15:58
PROVIDERS: ADMIT Family Medicine; ATTEND Family Medicine
DX: I13.0 Hypertensive heart and chronic kidney disease with heart failure and stage 1 through stage 4 chronic kidney disease, or unspecified chronic kidney disease (principal); N17.9 Acute kidney failure, unspecified; L03.116 Cellulitis of left lower limb; L03.115 Cellulitis of right lower limb; N18.9 Chronic kidney disease, unspecified; I50.813 Acute on chronic right heart failure; Z51.5 Encounter for palliative care; I48.91 Unspecified atrial fibrillation; E03.9 Hypothyroidism, unspecified; I27.20 Pulmonary hypertension, unspecified; I89.0 Lymphedema, not elsewhere classified; Z79.01 Long term (current) use of anticoagulants; I25.2 Old myocardial infarction; H91.90 Unspecified hearing loss, unspecified ear; R79.1 Abnormal coagulation profile; M10.9 Gout, unspecified; I87.2 Venous insufficiency (chronic) (peripheral); I36.1 Nonrheumatic tricuspid (valve) insufficiency; M25.552 Pain in left hip; M54.5 Low back pain
CPT/HCPCS: 36415; 51702; 71046; 72100; 73502-LT; 80048; 80053; 81003; 83880; 84484; 85025; 85610; 93005; 97161-GP; 97166-GO; 97530-GO; 97535-GO; A9270-GY; J0690; J1940